=== PATIENT | female | born 1980 | race Two or more races ===

== ENCOUNTER 2022-10-20 11:06 | Emergency (ER) | payer MEDICAID, OTHER ==
[~2022-10-20] VITALS: Ht 175.3 cm; Wt 107.0 kg
[2022-10-20] MEDS ORDERED: SODIUM CHLORIDE 0.9% 500 ML IVB ONE (11:30)
[2022-10-20] MEDS ORDERED: MORPHINE SULFATE 4 MG/ML SYR/VIAL IV ONE (11:30)
[2022-10-20] MEDS ORDERED: ONDANSETRON HCL 4 MG/2 ML VIAL IV ONE (11:30)
[2022-10-20 12:26] LABS: Basophils # (auto) 0 10 ^3/uL (0-0.2); Eosinophils # (auto) 0.1 10 ^3/uL (0-0.8); Hemoglobin 8.8 g/dL (12.2-16.2); Lymphocytes # (auto) 1.1 10 ^3/uL (0.4-5.4); Monocytes # (auto) 0.2 10 ^3/uL (0-1.3); Red Blood Cells 3.92 10^6/uL (4.0-5.20)
[2022-10-20 12:27] LABS: Albumin 3.7 g/dL (3.4-5.0); Calcium 9.1 mg/dL (8.5-10.1); Potassium 3.6 mmol/L (3.5-5.1)
[2022-10-20 12:28] LABS: Basophils % (auto) 0.6 % (0.0-2.0); Eosinophils % (auto) 1.1 % (0.0-7.0); Hematocrit 28.4 % (36.0-46.0); Lymphocytes % (auto) 19.8 % (10.0-50.0); Mean Corpuscular Hemoglobin 22.4 pg (28.0-32.0); Mean Corpuscular Volume 72.3 fL (80.0-100.0); Neutrophils # (auto) 4.3 10 ^3/uL (1.6-8.6); Neutrophils % (auto) 74.5 % (37.0-80.0); White Blood Cell 5.8 10^3/uL (4.4-10.8)
[2022-10-20 12:30] LABS: BUN/Creatinine Ratio 21.9 (10.0-20.0); Bilirubin, Total 0.6 mg/dL (0.2-1.0); Total Protein 7.6 g/dL (6.4-8.2)
[2022-10-20 12:52] LABS: INR 1.08 (0.9-1.15); Partial Thromboplastin Time 26.1 sec (24.6-33.4)
[2022-10-20 13:00] VITALS: BP 101/71
[2022-10-20] MEDS ORDERED: MEDR5TAB28 PO (14:36)
[2022-10-20] MEDS ORDERED: FERR1TAB36 PO (14:36)
== END 2022-10-20 15:15 | disposition home or self-care (01) ==
LOC: EDBD 11:06 → ER 11:06
DX: N93.9 Abnormal uterine and vaginal bleeding, unspecified (principal); D64.9 Anemia, unspecified; E11.9 Type 2 diabetes mellitus without complications; Z86.2 Personal history of diseases of the blood and blood-forming organs and certain disorders involving the immune mechanism; Z79.899 Other long term (current) drug therapy; Z88.0 Allergy status to penicillin
CPT/HCPCS: 36415; 76856; 80053; 85025; 85610; 85730; 86850; 86900; 86901; 96361; 96374; 99285; J2405; J7040

== ENCOUNTER 2024-02-07 19:47 | Emergency (ER) | payer MEDICAID, OTHER ==
[~2024-02-07] VITALS: Ht 172.7 cm; Wt 100.0 kg
[~2024-02-07 19:47] MED LIST: FERR1TAB36 PO; MEDR5TAB28 PO
[2024-02-07 20:34] LABS: Basophils # (auto) 0.1 10 ^3/uL (0-0.2); Basophils % (auto) 0.6 % (0.0-2.0); Eosinophils # (auto) 0.1 10 ^3/uL (0-0.8); Eosinophils % (auto) 1.5 % (0.0-7.0); Hematocrit 33.9 % (36.0-46.0); Hemoglobin 11.6 g/dL (12.2-16.2); Lymphocytes # (auto) 1.8 10 ^3/uL (0.4-5.4); Lymphocytes % (auto) 23.1 % (10.0-50.0); Mean Corpuscular Hemoglobin 28.1 pg (28.0-32.0); Mean Corpuscular Hgb Conc. 34.1 g/dL (32.0-36.0); Mean Corpuscular Volume 82.3 fL (80.0-100.0); Monocytes # (auto) 0.3 10 ^3/uL (0-1.3); Monocytes % (auto) 4.1 % (0.0-12.0); Neutrophils # (auto) 5.6 10 ^3/uL (1.6-8.6); Neutrophils % (auto) 70.7 % (37.0-80.0); Nucleated Red Blood Cells % 0.1 %; Red Blood Cells 4.13 10^6/uL (4.0-5.20); Red Cell Distribution Width 16.7 % (11.8-14.3); White Blood Cell 7.9 10^3/uL (4.4-10.8)
[2024-02-07 20:44] LABS: Chloride 107 mmol/L (98-107); Potassium 3.4 mmol/L (3.5-5.1); Sodium 139 mmol/L (136-145)
[2024-02-07 20:45] LABS: Anion Gap 9 (5-15); Calcium 9.4 mg/dL (8.7-10.4); Carbon Dioxide 23 mmol/L (20-30)
[2024-02-07 20:50] LABS: BUN/Creatinine Ratio 14.9 (10.0-20.0); Blood Urea Nitrogen 10 mg/dL (9-23); Glucose 145 mg/dL (74-106); Lipase 35 U/L (12-53)
[2024-02-07] MEDS: IOHEXOL 300 MG/ML 100ML BOTTLE IJ ONE (21:37)
[2024-02-07 22:11] VITALS: BP 106/65; PULSE 52; RESP 20; O2SAT 96
[2024-02-07] MEDS: ONDANSETRON HCL 4 MG/2 ML VIAL IV ONE (22:18)
[2024-02-07] MEDS: SODIUM CHLORIDE 0.9% 1,000 ML IV ONE (22:19)
[2024-02-07] MEDS: HYDROcodone-ACET 10/325MG TAB PO ONE (22:33)
[2024-02-07] MEDS: KETOROLAC TROMETH 30 MG/ML 1ML VIAL IV ONE (22:33)
[2024-02-07] MEDS: MORPHINE SULFATE 4 MG/ML SYR/VIAL IV ONE (22:52)
[2024-02-07] MEDS ORDERED: POLYPOW59 PO (23:11)
[2024-02-07] MEDS ORDERED: DOCU1CAP46 PO (23:11)
[2024-02-07] MEDS ORDERED: SODIENE35 RE (23:11)
== END 2024-02-07 23:56 | disposition home or self-care (01) ==
LOC: ER 19:47
DX: K59.00 Constipation, unspecified (principal); E11.9 Type 2 diabetes mellitus without complications; Z90.49 Acquired absence of other specified parts of digestive tract; Z88.0 Allergy status to penicillin
CPT/HCPCS: 36415; 74177; 80048; 83690; 85025; 96361; 96374; 99285; J2405; J7030; Q9967